=== PATIENT | male | born 1940 | race Caucasian/White ===

== ENCOUNTER 2017-07-17 06:45 | Day surgery (SDC) | payer MEDICARE ==
[~2017-07-17] VITALS: Ht 175.3 cm; Wt 96.6 kg
[~2017-07-17 06:45] MED LIST: APIX5TAB PO; DESL5TAB38 PO; FISH1CAP50 PO; LOSA25TA21 PO; MONT10TA24 PO; MULT-950 PO; OMEG1CAP6 PO; RABE20TA27 PO; RANO500T3 PO; SODIUM CHLORIDE 0.9% 1000ML 1,000 ML IV ONE; SOTA80TA PO
[2017-07-17 07:12] VITALS: BP 113/60
[2017-07-17] MEDS ORDERED: PROPOFOL 10 MG/ML 20ML VIAL IV ONE ×3 (08:46→09:10)
== END 2017-07-17 09:50 | disposition home or self-care (01) ==
LOC: ENDO 06:45 → DAH 06:45 → ENDO 09:50
PROVIDERS: ATTEND Internal Medicine Gastroenterology
DX: D12.4 Benign neoplasm of descending colon (principal); K57.30 Diverticulosis of large intestine without perforation or abscess without bleeding; K22.2 Esophageal obstruction; K21.9 Gastro-esophageal reflux disease without esophagitis; I10 Essential (primary) hypertension; I48.0 Paroxysmal atrial fibrillation; Z79.01 Long term (current) use of anticoagulants; Z96.693 Finger-joint replacement, bilateral; Z82.49 Family history of ischemic heart disease and other diseases of the circulatory system; Z88.8 Allergy status to other drugs, medicaments and biological substances
CPT/HCPCS: 43239; 43249; 45380; 93005; A4606; C1726; J2704 ×3; J7030

== ENCOUNTER → 2023-08-08 | Outpatient (CLI) | payer MEDICARE ==
[~2023-08-08] MED LIST changes: -APIX5TAB PO; +IOHEXOL-350 75 ML VIAL IV ONE; -LOSA25TA21 PO; +LOSA25TA41 PO; +MONT-39 PO; -MONT10TA24 PO; -RABE20TA27 PO; +RABE20TA30 PO; -SODIUM CHLORIDE 0.9% 1000ML 1,000 ML IV ONE
== END | disposition home or self-care (01) ==
LOC: RAH 08:03
PROVIDERS: ATTEND Internal Medicine Cardiovascular Disease
DX: I70.213 Atherosclerosis of native arteries of extremities with intermittent claudication, bilateral legs (principal); M47.815 Spondylosis without myelopathy or radiculopathy, thoracolumbar region; I25.10 Atherosclerotic heart disease of native coronary artery without angina pectoris; R16.0 Hepatomegaly, not elsewhere classified; K44.9 Diaphragmatic hernia without obstruction or gangrene; I70.90 Unspecified atherosclerosis; K40.20 Bilateral inguinal hernia, without obstruction or gangrene, not specified as recurrent; K57.90 Diverticulosis of intestine, part unspecified, without perforation or abscess without bleeding
CPT/HCPCS: 75635; Q9967

== ENCOUNTER → 2024-05-18 | Outpatient (CLI) | payer OTHER ==
[~2024-05-18] MED LIST changes: -IOHEXOL-350 75 ML VIAL IV ONE
--- NOTE | 2024-05-18 12:28 | HMCIMG ---
CT CORONARY CALCIFICATION SCORING: Anatomic images were reviewed. The calcium score is being generated and reported separately. This report is for the visualized anatomy only. Visualized portions of the lungs are clear. Hilar and mediastinal structures appear normal. Osseous structures are unremarkable. Impression: 1. Negative noncardiac anatomic findings. 2. The calcium score is 2958.4 consistent with a large degree of calcified plaque. This is greater than 90th percentile for a patient this age. CT was performed with one or more following dose reduction techniques: automated exposure control, adjustment of the mA and kv according to patient's size, or use of a iterative reconstruction technique.
== END | disposition home or self-care (01) ==
LOC: RAH 09:12
PROVIDERS: ATTEND Internal Medicine Cardiovascular Disease
DX: Z13.6 Encounter for screening for cardiovascular disorders (principal)
CPT/HCPCS: 75571

== ENCOUNTER → 2024-05-27 | Outpatient (CLI) | payer MEDICARE ==
--- NOTE | 2024-05-30 14:38 | HMCSR ---
APPROVED REPORT EXAM: Two-dimensional and M-mode echocardiogram with Doppler and color Doppler. INDICATION ICD: R01.1 Cardiac murmur, unspecified 2D Dimensions RVDd3.9 cmLVEF(%)37.5 (>50%)LVED Vol(simp.)110.0 mL IVSd1.3 (0.7-1.1cm)FS(%)18 %LVES Vol(simp.)67.0 mL LVDd4.4 (3.8-5.6cm)Ao Root(2D)3.8 (2.0-3.7cm)LVEF(%, simp.)39 % PWd1.3 (0.7-1.1cm)LVOT diam2.3 (1.8-2.4cm)LA ESV INDEX (BP)25.49 mL/m2 LVDs3.6 (2.5-4.0cm)IVC diam2.4 cm Aortic Valve AoV Vmax1.4 m/Billy Peak GR7.9 mmHgLVOT Vmax0.8 m/s AoV VTI0.4 mAo Mean GR4.2 mmHgLVOT VTI0.20 m YANELY (VMAX)2.2 cm2AVA (VTI) 2.2 cm2 Mitral Valve MV E Vmax97.2 cm/sDECEL Lygr107 ms MV A Vmax98.5 cm/sP 1/2 T65 ms E/A ratio1.0MVA (PHT)3.4 cm2 MR Max PG35 mmHg TDI E/E' Srjija02.9E/E' Ayeznvu47.5 Pulmonary Valve PV Vmax0.7 m/sPV VTI0.16 m Tricuspid Valve TR Vmax2.9 m/sRAP (EST) 8 kkKsRYAA21.9 mmHg TR Peak GR32.9 mmHg Left Ventricle Left ventricular cavity size is normal. There is mild concentric left ventricular hypertrophy. LVEF i s 40%. No left ventricle thrombus noted on this study. Grade 2 diastolic dysfunction. Right Ventricle The right ventricle is normal size. The right ventricular systolic function is normal. Atria The left atrium size is normal. The right atrium is mildly dilated. Aortic Valve Aortic valve is trileaflet. Aortic valve is mildly calcified. Trace aortic regurgitation. There is no aortic valvular stenosis. Mitral Valve Mitral valve leaflets are mildly sclerotic but open well. Mitral annular calcification is mild. Pamela l regurgitation is trace. There is no mitral valve stenosis. Tricuspid Valve The tricuspid valve leaflets appear normal. There is mild to moderate tricuspid regurgitation. Right ventricular systolic pressure is estimated at 40-50 mmHg. Pulmonic Valve Pulmonic valve is not well visualized. There is trace pulmonic valvular regurgitation. Great Vessels Aortic root is mildly dilated. IVC is dilated and collapses >50% with inspiration. Pericardium No pericardial effusion. Conclusion Left ventricular cavity size is normal. There is mild concentric left ventricular hypertrophy. LVEF is 40%. Grade 2 diastolic dysfunction. The right ventricle is normal size. The left atrium size is normal. Aortic valve is trileaflet. Aortic valve is mildly calcified. Trace aortic regurgitation. Mitral valve leaflets are mildly sclerotic but open well. Mitral annular calcification is mild. Mitral regurgitation is trace. There is mild to moderate tricuspid regurgitation. Right ventricular systolic pressure is estimated at 40-50 mmHg. There is trace pulmonic valvular regurgitation. Aortic root is mildly dilated. IVC is dilated and collapses >50% with inspiration. No pericardial effusion.
== END | disposition home or self-care (01) ==
LOC: SHCH 11:12
PROVIDERS: ATTEND Internal Medicine Cardiovascular Disease
DX: I08.3 Combined rheumatic disorders of mitral, aortic and tricuspid valves (principal); R01.1 Cardiac murmur, unspecified
CPT/HCPCS: 93306

== ENCOUNTER → 2024-06-29 | Outpatient (CLI) | payer MEDICARE ==
--- NOTE | 2024-06-29 17:14 | HMCSR ---
APPROVED REPORT Laterality: Bilateral Indications r09.89 Doppler Spectral Velocity Analysis PSV / EDVPSV / EDV ECA (R) 114 / cm/sECA (L) 106 / cm/s dICA (R) 77 / 28 cm/sdICA (L) 92 / 23 cm/s Suma (R) 96 / 25 cm/smICA (L) 61 / 25 cm/s pICA (R) 138 / 17 cm/spICA (L) 92 / 25 cm/s dCCA (R) 74 / 15 cm/sdCCA (L) 94 / 14 cm/s mCCA (R) 94 / 22 cm/smCCA (L) 110 / 22 cm/s pCCA (R) 88 / 17 cm/spCCA (L) 94 / 9 cm/s Vert (R) 47 / cm/sVert (L) 35 / cm/s Subl. (R) 142 / cm/sSubl. (L) 223 / cm/s ICA/CCA 1.47ICA/CCA 0.84 Technologist Impression Mild heterogenous plaque noted in the bilateral carotids, without hemodynamic significance. Bilateral vertebral arteries appear antegrade. Conclusion Mild heterogenous plaque noted in the bilateral carotids, without hemodynamic significance. Bilateral vertebral arteries appear antegrade. Conclusion Mild heterogenous plaque noted in the bilateral carotids, without hemodynamic significance. Bilateral vertebral arteries appear antegrade.
== END | disposition home or self-care (01) ==
LOC: SHCH 11:08
PROVIDERS: ATTEND Internal Medicine Cardiovascular Disease
DX: I65.23 Occlusion and stenosis of bilateral carotid arteries (principal); R09.89 Other specified symptoms and signs involving the circulatory and respiratory systems
CPT/HCPCS: 93880

== ENCOUNTER → 2024-07-12 | Outpatient (CLI) | payer MEDICARE ==
[2024-07-12] MEDS: REGADENOSON 0.4 MG/5 ML PF SYG IVP ONE (14:17)
--- NOTE | 2024-07-14 08:13 | HMCSR ---
APPROVED REPORT Height: 5 ft 10in Weight: 220 lbs TEST INDICATIONS Dyspnea The imaging protocol used to acquire images was Rest Tc-99m/stress Tc-99m 1 day Consent: The procedure was explained and understood by the patient. Informerd consent was witnessed Chasidy Wilkins RN First, low dose rest was performed then high dose stress. RESTING DATA: The resting ekg shows: NSR Rest SPECT myocardial perfusion imaging was performed in supine position minutes following the intra venous injection of 9 mCi of Tc-99 Sestamibi. Time of rest injection: Date: 07/12/2024 Time of rest imaging: Date: 07/12/2024 PHARMACOLOGIC STRESS: Pharmacologic stress test was performed by injecting regadenoson 0.4 mg IV push followed by the intra venous injection of 22 mCi of Tc-99 Sestamibi. Time of stress injection: Date: 07/12/2024 Time of stress imaging: Date: 07/12/2024 Heart Rate at time of stress injection: 65 bpm. The images were gated to evaluate regional wall motion and calculate left ventricular ejection fracti on. STRESS DETAILS Reason for Termination: Infusion complete Stress Symptoms: No chest pain or symptoms Max HR Achieved: 73 bpm % of APMHR Achieved: 62 Max Blood Pressure: 123/71 mmHg Stress ECG: NSR LEFT VENTRICLE Size: The left ventricular size is normal. Systolic Function:The left ventricular systolic function is normal. Wall Motion: No regional wall motion abnormalities noted. The left ventricular ejection fraction was calculated to be 77%.TID = . LV PERFUSION Patchy isotope uptake with early washout, a finding of questionable cignificance. No reversible defects noted. Conclusion The left ventricular size is normal. The left ventricular systolic function is normal. No regional wall motion abnormalities noted. Patchy isotope uptake with early washout, a finding of questionable cignificance. No reversible defects noted. The left ventricular ejection fraction was calculated to be 77%.
== END | disposition home or self-care (01) ==
LOC: SHCH 07-12 10:58
PROVIDERS: ATTEND Internal Medicine Cardiovascular Disease
DX: R06.09 Other forms of dyspnea (principal)
CPT/HCPCS: 78452; 93017; J2785; A9500 ×2

== ENCOUNTER → 2024-08-03 | Outpatient (CLI) | payer MEDICARE ==
[2024-08-03 16:28] LABS: CREATININE 1.3 mg/dL (0.5-1.3); POTASSIUM 4.3 mmol/L (3.5-5.1)
== END | disposition home or self-care (01) ==
LOC: LAB 11:39
PROVIDERS: ATTEND Nurse Practitioner Acute Care
DX: R06.02 Shortness of breath (principal)
CPT/HCPCS: 36415; 80048

== ENCOUNTER → 2024-08-05 | Outpatient (CLI) | payer MEDICARE ==
[~2024-08-05] MED LIST changes: +IOHEXOL 350 MG/ML 100ML INFUS..BTL IV ONE; +metoPROLOL tartRATE 1 MG/ML 5ML VIAL IV ONE
--- NOTE | 2024-08-05 13:58 | HMCIMG ---
CT CARDIAC ANGIO W/CONT. CCTA REASON: SOB COMPARISON: None TECHNIQUE: Images are obtained through the heart in the axial plane before and during bolus IV contrast infusion, 100 cc Omnipaque 350. 2-D and 3-D multiplanar reconstruction images were then performed. The injection had to be repeated once due to motion artifact on the first sequence, total contrast volume was 200 cc. FINDINGS: This dictation is for the noncardiac findings only. Cardiac and coronary artery findings are reported separately. Visualized portions of the lungs are clear. There is normal-appearing pulmonary interstitium. There is no hilar or mediastinal lymphadenopathy. Chest wall structures appear unremarkable. IMPRESSION: 1. Unremarkable noncardiac portions of CT cardiac angiography.
--- NOTE | 2024-08-08 14:39 | CARDIOLOGY ---
RAD REPORT: [facility] CT ANGIO RADIOLOGY REPORT: CORONARY CT ANGIOGRAPHY DATE: Aug 08, 2024 QUALITY: Excellent CLINICAL HISTORY AND INDICATION: [ HFrEF, ESPINO ] TECHNIQUE: After obtaining a preliminary scout leaser image, contrast imaging performed on an [employer] [id number] scanner. A dedicated, limited window, coronary imaging protocol was used, with single breath-hold, retrospective ECG gating, and automated arrhythmia rejection. 100 cc of low osmolar contrast agent: Omnipaque 350 was delivered via a 18-gauge IV catheter in the right antecubital fossa, using a power injector and followed by 60 cc of normal saline bolus as a chaser. Collimated images were reformatted at 0.5 mm intervals, and sent to an offline independent workstation for interpretation, using 3D anatomic reconstructions: Curved multiplanar reconstructions, maximum intensity projections, and multiplanar imaging. No metoprolol was administered prior to scanning due to low baseline heart rate. 0.4 mg SL nitroglycerin was given. CORONARY ARTERY DESCRIPTIONS: The coronary arteries arise in normal position. Left main coronary artery: Normal caliber vessel that bifurcates into the LAD and LCx. There is mixed calcified and noncalcified plaque in the ostial left main with 30-40% stenosis. Left anterior descending coronary artery: Normal caliber vessel and gives rise to diagonal and septal branches. There is non-calcified plaque in the ostial/proximal LAD with 20-30% stenosis. Left circumflex coronary artery: Normal caliber, nondominant and gives rise to two large OM branches. The OM2 has a proximal and inferior branch. There is mixed calcified and noncalcified plaque in the proximal LCx with 20-30% stenosis. There is mixed calcified and noncalcified plaque in the ostial OM 1 with 20-30% stenosis. Right coronary artery: Large, dominant vessel giving rise to the PL and PDA branches. There is mixed calcified and noncalcified plaque in the ostial RCA with 70% stenosis vs calcium blooming artifact. There is mixed calcified and noncalcified plaque in the mid RCA with 80% stenosis vs motion artifact. CAD-RADs: 4A, severe stenosis, recommend left heart catheterization. Thoracic Aorta: Normal diameter. Marci Lee MD Cardiovascular Disease [facility] MARCI LEE MD Aug 08, 2024 14:39
== END | disposition home or self-care (01) ==
LOC: RAH 07:28
PROVIDERS: ATTEND Internal Medicine Cardiovascular Disease
DX: R06.02 Shortness of breath (principal)
CPT/HCPCS: 75574; J3490; Q9967

== ENCOUNTER 2024-09-01 10:13 | Emergency (ER) | payer MEDICARE ==
[~2024-09-01] VITALS: Ht 177.8 cm; Wt 102.1 kg
[~2024-09-01 10:13] MED LIST changes: -IOHEXOL 350 MG/ML 100ML INFUS..BTL IV ONE; -metoPROLOL tartRATE 1 MG/ML 5ML VIAL IV ONE
--- NOTE | 2024-09-01 11:32 | ERN ---
ED Note History of Present Illness Stated Complaint: OTHER PROBLEMS Chief Complaint: Skin Rash/Abscess Time Seen by MD: 10:33 Time Seen by Midlevel: 10:33 Dictation: 84-year-old male presents to the ED for evaluation of right axillary lump noticed this morning. Patient reports he noticed a bulge to his right underarm, but denies any pain, discharge or any other associated symptoms at this time. PMHx AFib, HTN, pacemaker Allergies: Coded Allergies: hydrocodone (Unverified Allergy, Intermediate, RASH, 06/27/15) Home Meds Active Scripts Amoxicillin/Potassium Clav (Amox Tr-K Clv 875-125 mg Tab) 875 Mg-125 Mg Tablet, 1 TAB PO BID for 7 Days, #14 TAB 0 Refills Prov:ANGEL HARRIS 09/01/24 Reported Medications Desloratadine (Desloratadine) 5 Mg Tab.rapdis, 5 MG PO DAILY, TAB 07/16/17 Sotalol HCl (Sotalol) 80 Mg Tablet, 80 MG PO BID, TAB 07/16/17 Losartan Potassium (Losartan Potassium) 25 Mg Tablet, 25 MG PO DAILY, TAB 07/16/17 Ranolazine (Ranexa) 500 Mg Tab.er.12h, 500 MG PO BID, TAB 07/16/17 Davenport-3 Fatty Acids/Fish Oil ([place]avenport 3 Fish Oil Softgel) 1 Each Capsule.dr, 1 EACH PO AM, CAP 06/19/15 Davenport-3 Fatty Acids (Fish Oil) 500 Mg Capsule.dr, 1 GM PO AM, CAP 06/19/15 Multivitamin (Multi-Day Vitamins) 1 Each Tablet, 1 EACH PO AM, TAB 06/19/15 Montelukast Sodium (Montelukast Sodium) 10 Mg Tablet, 10 MG PO AM, TAB 06/19/15 Rabeprazole Sodium (Rabeprazole Sodium) 20 Mg Tablet.dr, 20 MG PO AM, TAB 06/19/15 Past Medical History Past Medical History: A-Fib, Hypertension Surgical History: Pacer/AICD Review of System Dictation Constitutional: Negative for fever,chills, and weight loss Eyes: Negative for injury, pain,redness, and discharge ENT: Negative for injury,pain or swelling Cardiovascular: Negative for chest pain, palpitations, and edema Respiratory: Negative for shortness of breath, cough, and wheezing, Abdomen/GI: Negative for abdominal pain, nausea, vomiting, diarrhea, and constipation Back: Negative for injury and pain : Negative for injury, bleeding and discharge MS/Extremity: Negative for injury and deformity Skin: Positive for right axillary lump Negative for rash, and discoloration Neuro: Negative for headache, weakness, numbness, tingling, and seizure Psych: Negative for suicide ideation, homicidal ideation, and hallucinations Initial Vital Sign VS Vital Signs Date Time Temp Pulse Resp B/P (MAP) Pulse Ox O2 Delivery O2 Flow Rate FiO2 09/01/24 10:17 98.2 97 16 151/94 98 Room Air 0 09/01/24 13:05 21 Physical Exam Dictation General: awake, alert, NAD Head/Face: Normocephalic, atraumatic Eyes: Normal conjunctiva Neck: Normal range of motion, supple Cardiovascular: RRR, normal S1/S2 Respiratory: no respiratory distress Skin: Warm, dry, normal turgor, no rash, right axillary nodule with mild erythematous nontender MS/Extremity: Pulses equal, no cyanosis, neurovascular intact, FROM Neuro: COAx4, GCS 15, no neurological deficits, normal gait Psych: Normal behavior, mood, and affect normal Results (Laboratory/Radiology) Ultrasound Comment: REASON: Right lump ORDERING PHYSICIAN: ANGEL HARRIS PROCEDURE: SOFT AXILL - US SOFT TISSUE AXILLA US SOFT TISSUE AXILLA REASON: Right lump. COMPARISON: None TECHNIQUE: Right axillary ultrasound study was performed. FINDINGS: Right axillary lymph nodes are seen measuring 8 mm and 9 mm each. IMPRESSION: Right axillary lymph nodes. DICTATED BY: ANEESH CHANEL MD DATE: 09/01/24 1234 ED Course ED Course Orders Procedure Category Date Status Time Us Soft Tissue Axilla US 09/01/24 Resulted 11:50 Vital Signs Date Time Temp Pulse Resp B/P (MAP) Pulse Ox O2 Delivery O2 Flow Rate FiO2 09/01/24 13:05 98.2 92 16 148/90 98 Room Air* 0 21 09/01/24 10:17 98.2 97 16 151/94 98 Room Air 0 Medical Decision Making MDM MDM: Differential diagnosis: Cellulitis, abscess, lymph node swelling Rationale: 84-year-old male presents to the ED for evaluation of right axillary lump noticed this morning. Patient reports he noticed a bulge to his right underarm, but denies any pain, discharge or any other associated symptoms at this time. PMHx AFib, HTN, pacemaker Right axillary soft tissue ultrasound obtained indicating lymph nodes. Per patient's physical examination of a right axillary nodule with mild erythematous antibiotics were prescribed for outpatient treatment. Patient and were educated on findings and diagnosis. Advised to follow up with PCP. Return to the emergency department if any worsening symptoms. Patient verbalized understanding. Patient stable for discharge. Previous outside records reviewed: Old ER visits. Risk of complication and/or morbidity or mortality of patient management: None Medications-Per medication reconciliation Need for hospitalization: Patient does not meet criteria for hospitalization. Need for emergency major/minor surgery: No There are no social concerns with this patient. Prescription drug management Prescriptions will include symptomatic care Patient's prior external medical records from other ER visits were reviewed by me as indicated. Prior testing and results from previous visits were reviewed. Prior tests were taken into account with medical decision making and resource utilization, independent historian/historians were used to obtain complete medical history. I independently interpreted the test that were performed, results were reviewed by me and considered findings on radiology if ordered. Medical management and examination interpretation discussions were had by me with other qualified healthcare professionals as indicated for the patient's care. DX & DISP Disposition: Discharge Departure Impression: Primary Impression: Axillary lymphadenopathy Condition: Stable Scripts Amoxicillin/Potassium Clav (Amox Tr-K Clv 875-125 mg Tab) 875 Mg-125 Mg Tablet 1 TAB PO BID for 7 Days, #14 TAB 0 Refills Prov: ANGEL HARRIS 09/01/24 Additional Instructions: Discharge home. Rest. Follow up with primary care in 24 hours. Return to the ER for any acute changes or worsening symptoms. If any medications were prescribed take as directed. Okay to continue home medications unless otherwise discussed during your visit in the emergency room today. Patient was also advised to follow-up with primary care physician in 1 to 2 days for continued monitoring. Referrals: MARGOTH NOLAND MD (PCP) I performed the substantive portion of the visit. I have reviewed and personally made and approve the management plan that is documented in the notes by myself or the JIM. I acknowledge full responsibility for the patient's management plan. I personally scribed for ANGEL HARRIS ([email or web address]) on 09/01/24 at 11:32. Electronically submitted by Meche Ojeda ([email or web address]). ANGEL HARRIS Sep 01, 2024 11:32 TRISTAN JEFFERSON MD Sep 01, 2024 18:37
--- NOTE | 2024-09-01 12:36 | HMCIMG ---
US SOFT TISSUE AXILLA REASON: Right lump. COMPARISON: None TECHNIQUE: Right axillary ultrasound study was performed. FINDINGS: Right axillary lymph nodes are seen measuring 8 mm and 9 mm each. IMPRESSION: Right axillary lymph nodes.
[2024-09-01] MEDS ORDERED: AMOX1TAB16 PO (13:01)
[2024-09-01 13:05] VITALS: BP 148/90; PULSE 92; RESP 16; TEMP 98.3; O2SAT 98
== END 2024-09-01 13:11 | disposition home or self-care (01) ==
LOC: EDH 10:13
DX: R59.0 Localized enlarged lymph nodes (principal); I48.91 Unspecified atrial fibrillation; I10 Essential (primary) hypertension; Z79.899 Other long term (current) drug therapy; Z88.5 Allergy status to narcotic agent; Z95.810 Presence of automatic (implantable) cardiac defibrillator
CPT/HCPCS: 76882; 99284

== ENCOUNTER 2024-09-13 05:47 | Day surgery (SDC) | payer MEDICARE ==
[2024-09-09 09:12] LABS: BASOPHILS # (AUTO) 0.02 K/uL (0.00-0.20); BASOPHILS % (AUTO) 0.3 % (0.0-5.0); EOSINOPHILS # (AUTO) 0.12 K/uL (0.00-0.70); EOSINOPHILS % (AUTO) 1.8 % (0.0-8.0); HEMATOCRIT 43.3 % (42-54); IMMATURE GRANULOCYTE ABSOLUTE 0.03 K/uL (0-1); MEAN CORPUSCULAR HEMOGLOBIN 30.6 pg (27.0-33.0); MEAN CORPUSCULAR HGB CONC 32.3 g/dL (32.0-36.0); MEAN CORPUSCULAR VOLUME 94.7 fL (79-99); MONOCYTES # (AUTO) 0.6 K/uL (0.1-1.0); NEUTROPHILS # (AUTO) 4.1 K/uL (1.8-7.7); NEUTROPHILS % (AUTO) 59.5 % (40.0-77.0); PLATELET COUNT (AUTO) 192 K/uL (130-400); RED BLOOD CELL COUNT(AUTO) 4.57 MIL/uL (4.50-6.20); RED CELL DISTRIBUTION WIDTH 14.5 % (11.0-15.5); WHITE BLOOD COUNT (AUTO) 6.8 K/uL (4.8-10.8)
[2024-09-09 09:15] LABS: ADD UA MICROSCOPIC NO; APPEARANCE,URINE CLEAR (CLEAR); BILIRUBIN,URINE NEGATIVE (NEGATIVE); COLOR,URINE LIGHT-YELLOW (YELLOW); GLUCOSE, URINE (UA) NEGATIVE (NEGATIVE); KETONES,URINE NEGATIVE (NEGATIVE); LEUKOCYTE ESTERASE ,URINE NEGATIVE Leu/uL (NEGATIVE); NITRATE,URINE NEGATIVE (NEGATIVE); OCCULT BLOOD,URINE NEGATIVE (NEGATIVE); PROTEIN,URINE NEGATIVE (NEGATIVE); UROBILINOGEN,URINE 0.2 mg/dL (0.2-1.0)
[2024-09-09 09:25] LABS: CREATININE 1.4 mg/dL (0.5-1.3)
[2024-09-09 09:28] LABS: INR 1.07 (0.85-1.15); PROTHROMBIN TIME 11.3 SEC (9.6-11.6)
[2024-09-09 09:29] LABS: PARTIAL THROMBOPLASTIN TIME 30.5 SEC (26.3-35.5)
[2024-09-09 09:33] LABS: B-TYPE NATRIURETIC PEPTIDE 63 pg/mL (0-100)
[2024-09-09 09:39] VITALS: BP 129/66; PULSE 68; RESP 18; TEMP 98.4
--- NOTE | 2024-09-09 10:02 | EKG ---
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
--- NOTE | 2024-09-09 16:19 | HMCIMG ---
CHEST 1VW HISTORY: Preop COMPARISON: None FINDINGS: A frontal projection of the chest was obtained. No acute pulmonary infiltrates is seen. The heart is borderline enlarged. Lateral shoulder arthroplasty changes are seen. Pacemaker is seen entering from the left. Postop changes are seen of cervical spine. Aortic calcifications are seen. IMPRESSION: 1. No acute pulmonary infiltrate is seen.
--- NOTE | 2024-09-10 09:34 | NUR ---
RE: LABS REPORTED BMP RESULTS TO LUIZ TOMAS NP. RECEIVED ORDERS TO HAVE PATIENT HYDRATE OVER THE WEEKEND. CALLED PATIENT AND INSTRUCTED HIM TO HYDRATE OVER THE WEEKEND, PATIENT VERBALIZED UNDERSTANDING.
[2024-09-13] VITALS (9 sets, daily range): BP systolic 102–172; BP diastolic 57–80; PULSE 59–66; RESP 14–17; TEMP 97.3–97.9
[~2024-09-13] VITALS: Ht 177.8 cm; Wt 125.9 kg
[~2024-09-13 05:47] MED LIST changes: +ALBUTEROL IH; +APIX5TAB PO; +CYCL30DR OP; +FUROSEMIDE PO; -LOSA25TA41 PO; +LOSA50TA64 PO; -MONT-39 PO; -OMEG1CAP6 PO; -RABE20TA30 PO; +ROSU10TA72 PO
[2024-09-13] MEDS ORDERED: IOHEXOL 350 MG/ML 100ML INFUS..BTL IV ONE (07:15)
[2024-09-13] MEDS ORDERED: SODIUM BICARB 50MEQ 50ML VIAL 50 ML ONE (07:15)
[2024-09-13] MEDS ORDERED: HEParin 10,000 UNIT/10ML (1,000 UNIT/ML) VIAL ONE (07:15)
[2024-09-13] MEDS ORDERED: HEParin-NS 1,000 UNIT/500 ML 1,000 ML IV ONE (07:16)
[2024-09-13] MEDS ORDERED: NITROGLYCERIN 50MG VIAL ONE (07:16)
[2024-09-13] MEDS ORDERED: LIDOCAINE HCL 400MG/20ML VIAL ONE (07:16)
[2024-09-13] MEDS ORDERED: FENTanyl CITRate PF 50 MCG/1 ML 2ML VIAL ONE (07:34)
[2024-09-13] MEDS ORDERED: MIDAZOLAM HCL 1 MG/ML 2ML VIAL ONE ×2 (07:35→07:51)
[2024-09-13] MEDS ORDERED: niCARDIpine 25MG INJ IV ONE (07:39)
[2024-09-13] MEDS: 0.9%NACL 1000ML 1,000 ML IV SCH (08:00)
[2024-09-13] MEDS ORDERED: IOHEXOL-350 50ML VIAL IV ONE (08:26)
[2024-09-13] MEDS ORDERED: cloPIDOgrel 300MG TAB ONE (08:35)
[2024-09-13] MEDS ORDERED: ASPIRIN 81 MG EC TAB ONE (08:36)
[2024-09-13] MEDS ORDERED: 0.9%NACL 10ML VIAL IV SCH (09:00)
[2024-09-13] MEDS ORDERED: MAG/ALUM/SIMETH 30 ML UDCUP ONE (09:00)
--- NOTE | 2024-09-13 09:19 | CCATH ---
PROCEDURES: * Left heart catheterization. * Selective right and left coronary arteriogram. * IVUS of the right coronary artery. * Balloon angioplasty and stenting of the ostial RCA. * Conscious sedation for 1 hour. INDICATIONS: * Severe coronary artery disease. * Abnormal coronary CT angiography. * Recurrent angina. * Ischemic cardiomyopathy. COMPLICATIONS: None. TOTAL CONTRAST: Approximately 80 mL. APPROACH: Right radial approach. DESCRIPTION OF PROCEDURE: The patient was taken to the cardiac catheterization lab after appropriate operative consents were signed. He was prepped and draped in the usual fashion. After conscious sedation was administered, the right radial artery region was infiltrated with 2% Xylocaine without epinephrine. A 6-St Helenian radial sheath was advanced in retrograde fashion by the modified Seldinger technique. At this point, a TIG 4 catheter was advanced over an indwelling wire and positioned into the left ventricular cavity. Left ventricular end-diastolic pressure measurement was obtained. Ventriculography was deferred. The patient has LV dysfunction by echocardiography with an EF of 40% and also has chronic kidney disease. Pullback revealed no aortic stenosis. At this point, the catheter was engaged in the left main coronary artery. This was imaged in multiplane. The left main was a moderately sized vessel that was calcified and had an ostial to proximal 40% stenotic lesion. It bifurcated into an LAD, and a circumflex. The LAD was a large vessel that gave rise to several diagonals and septal perforators. The LAD system was free of disease. Circumflex was a moderately sized vessel that gave rise to a large branching obtuse marginal 1 with a 20% lesion in its proximal portion. The ongoing circ was small and free of disease. The catheter was then engaged in the ostium of the right coronary artery. Catheter dampening ensued immediately. The right coronary artery was a large vessel that was ectatic in some segments and tortuous. It had a severe stenotic lesion at its ostium rated at least 80% and was somewhat hazy. The mid RCA had a 30% stenotic lesion. The distal RCA was free of disease and gave rise to a large PDA and a large branching PLVB. The PDA had an ostial 40% lesion and the rest of the vessel was free of disease. At this point, the decision was made to proceed with intervention for the right coronary artery. An FR4 6-St Helenian catheter was advanced and selectively engaged to the ostium of the right coronary artery. A 0.014 wire was advanced after full heparinization and ACT check. At this point, we utilized an IVUS catheter to image the vessel. Multiple views were obtained with IVUS. The patient had a size of approximately 4.5-5 mm vessel. The IVUS cross-sectional area was remarkable for an 80% stenotic lesion. The minimal diameter was 2.4 in the area of stenosis. Given that, the decision was made to proceed with angioplasty and stent placement of the ostial and proximal right coronary artery. We utilized a 4.0 x 18 Sajan Irvine stent, which was positioned appropriately in the ostium with no protrusion. The stent was deployed at 14 atmospheres at 4.4 mm size with good final angiographic results. At this point, the procedure was completed, the patient tolerated it well and left the cardiac catheterization lab in stable condition. The catheter was withdrawn over an indwelling wire and radial band was applied. FINAL IMPRESSION: * Severe coronary artery disease involving the right coronary artery and mild to moderate left main disease. * Ischemic cardiomyopathy with ejection fraction of 40% by noninvasive studies. * No aortic stenosis. * Successful IVUS guided balloon angioplasty and stenting of the ostial and proximal RCA with a 4.0 x 18 Sajan Irvine drug-eluting stent inflated to 14 atmospheres at 4.1 mm size with good final angiographic results. PLAN: Continue medical management. TID: [id number] RECEIPT: [id number]
--- NOTE | 2024-09-13 11:50 | NUR ---
TR BAND REMOVED AT THIS TIME RIGHT RADIAL SITE ASYMPTOMATIC. STERILE 2X2 GAUZE AND TEGADERM APPLIED TO RIGHT RADIAL SITE.
== END 2024-09-13 12:23 | disposition home or self-care (01) ==
LOC: DAH 05:47
PROVIDERS: ATTEND Internal Medicine Cardiovascular Disease
DX: R93.1 Abnormal findings on diagnostic imaging of heart and coronary circulation (principal); I25.118 Atherosclerotic heart disease of native coronary artery with other forms of angina pectoris; I25.5 Ischemic cardiomyopathy; I13.0 Hypertensive heart and chronic kidney disease with heart failure and stage 1 through stage 4 chronic kidney disease, or unspecified chronic kidney disease; N18.30 Chronic kidney disease, stage 3 unspecified; I50.42 Chronic combined systolic (congestive) and diastolic (congestive) heart failure; I25.84 Coronary atherosclerosis due to calcified coronary lesion; E78.5 Hyperlipidemia, unspecified; I48.0 Paroxysmal atrial fibrillation; E66.9 Obesity, unspecified; K21.9 Gastro-esophageal reflux disease without esophagitis; Z86.0100 Personal history of colon polyps, unspecified; Z82.49 Family history of ischemic heart disease and other diseases of the circulatory system; Z96.651 Presence of right artificial knee joint; Z96.612 Presence of left artificial shoulder joint; Z96.611 Presence of right artificial shoulder joint; Z90.89 Acquired absence of other organs; Z98.890 Other specified postprocedural states; Z98.41 Cataract extraction status, right eye; Z98.42 Cataract extraction status, left eye; Z95.0 Presence of cardiac pacemaker; Z68.31 Body mass index [BMI] 31.0-31.9, adult; Z79.899 Other long term (current) drug therapy
CPT/HCPCS: 80048; 83880; 85025; 85610; 85730; 81003; 36415; 71045; 93005; 92978; 93458; C9600; C1769 ×2; C1887; C1874; C1894; C1753; Q9965; J3010; J3490 ×4; J7030; J1644 ×2; J2250 ×2; Q9967; A4215; A4222; A4221; A4663; A4216; A6206; A4606; A4223 ×3; 99156; 99157

== ENCOUNTER 2024-10-15 06:38 | Day surgery (SDC) | payer MEDICARE ==
[2024-10-13 12:55] LABS: BASOPHILS # (AUTO) 0.01 K/uL (0.00-0.20); BASOPHILS % (AUTO) 0.1 % (0.0-5.0); EOSINOPHILS # (AUTO) 0.14 K/uL (0.00-0.70); EOSINOPHILS % (AUTO) 1.8 % (0.0-8.0); HEMATOCRIT 43.1 % (42-54); IMMATURE GRANULOCYTE ABSOLUTE 0.03 K/uL (0-1); LYMPHOCYTES # (AUTO) 2.1 K/uL (1.0-4.8); LYMPHOCYTES % (AUTO) 26.8 % (21.0-51.0); MEAN CORPUSCULAR HEMOGLOBIN 30.4 pg (27.0-33.0); MEAN CORPUSCULAR HGB CONC 32.3 g/dL (32.0-36.0); MEAN CORPUSCULAR VOLUME 94.3 fL (79-99); MONOCYTES # (AUTO) 0.7 K/uL (0.1-1.0); MONOCYTES % (AUTO) 8.4 % (3.0-13.0); NEUTROPHILS % (AUTO) 62.5 % (40.0-77.0); PLATELET COUNT (AUTO) 221 K/uL (130-400); RED BLOOD CELL COUNT(AUTO) 4.57 MIL/uL (4.50-6.20); RED CELL DISTRIBUTION WIDTH 14.7 % (11.0-15.5)
[2024-10-13 13:10] LABS: CREATININE 1.3 mg/dL (0.5-1.3); POTASSIUM 4.9 mmol/L (3.5-5.1)
[2024-10-13 13:22] LABS: INR 1.13 (0.85-1.15); PROTHROMBIN TIME 11.8 SEC (9.6-11.6)
[2024-10-13 13:24] LABS: PARTIAL THROMBOPLASTIN TIME 32.9 SEC (26.3-35.5)
[2024-10-13 13:28] VITALS: BP 141/66; PULSE 59; RESP 18; TEMP 97.9
--- NOTE | 2024-10-13 13:53 | EKG ---
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
[~2024-10-15] VITALS: Ht 180.3 cm; Wt 101.8 kg
[2024-10-15] VITALS (10 sets, daily range): BP systolic 110–145; BP diastolic 54–79; PULSE 60–97; RESP 8–18; TEMP 96.7–98.2
[~2024-10-15 06:38] MED LIST changes: +CLOP75TA32 PO; -CYCL30DR OP; -DESL5TAB38 PO; +FURO20TA4 PO; -FUROSEMIDE PO; -LOSA50TA64 PO; +METO-408 PO
[2024-10-15] MEDS: 0.9%NACL 1000ML 1,000 ML IV SCH (08:11)
[2024-10-15] MEDS ORDERED: ceFAZolin SODIUM 1 GM VIAL ONE (09:15)
[2024-10-15] MEDS ORDERED: LIDOCAINE HCL 1% MDV 50ML VIAL ONE (09:15)
[2024-10-15] MEDS ORDERED: BUPIvacaine/PF 0.25% 30ML VIAL IJ ONE (09:15)
[2024-10-15] MEDS ORDERED: FENTanyl CITRate PF 50 MCG/1 ML 2ML VIAL ONE (09:28)
[2024-10-15] MEDS ORDERED: MIDAZOLAM HCL 1 MG/ML 2ML VIAL ONE ×3 (09:28→10:16)
[2024-10-15] MEDS ORDERED: IOHEXOL-350 50ML VIAL IV ONE (10:11)
--- NOTE | 2024-10-15 12:20 | NUR ---
dressing: pressure dressing to left upper chest dry/intact. ice bag applied to site as per orders. left arm in place to arm sling.
--- NOTE | 2024-10-15 12:35 | NUR ---
dressing: pressure dressing to left upper chest remains dry/intact with ice bag in place. left arm remains in place to arm sling.
--- NOTE | 2024-10-15 12:50 | NUR ---
dressing : pressure dressing to left upper chest remains dry/intact with ice bag in place. left arm in place to arm sling.
--- NOTE | 2024-10-15 13:05 | NUR ---
dressing: pressure dressing remains dry/intact with ice bag in place. left arm remains in place to arm sling.
--- NOTE | 2024-10-15 13:20 | NUR ---
dressing: pressure dressing to left upper chest remains dry/intact with ice bag in place. left arm remains in place to arm sling.
--- NOTE | 2024-10-15 13:50 | NUR ---
dressing: dressing to left upper chest remains dry/intact with ice bag in place. left arm remains in place to arm sling.
--- NOTE | 2024-10-15 13:54 | NUR ---
report: hand-off communication given to viji castillo rn
--- NOTE | 2024-10-15 14:20 | NUR ---
DRESSING PRESSURE DRESSING TO LEFT UPPER CHEST REMAINS CLEAN, DRY, AND INTACT. SURROUNDING AREA SOFT, NON-TENDER. PATIENT DENIES ANY PAIN/DISCOMFORT.
--- NOTE | 2024-10-15 15:20 | NUR ---
DRESSING PRESSURE DRESSING TO LEFT UPPER CHEST REMAINS CLEAN, DRY, AND INTACT. SURROUNDING AREA SOFT, NON-TENDER. PATIENT DENIES ANY PAIN/DISCOMFORT.
[2024-10-15] MEDS: ceFAZolin SODIUM 1 GM VIAL IVPB ONE (16:15)
--- NOTE | 2024-10-15 16:20 | NUR ---
DRESSING PRESSURE DRESSING TO LEFT UPPER CHEST REMAINS CLEAN, DRY, AND INTACT. SURROUNDING AREA SOFT, NON-TENDER. PATIENT DENIES ANY PAIN/DISCOMFORT.
--- NOTE | 2024-10-15 16:54 | HMCIMG ---
CHEST 1VW HISTORY: Postpacemaker placement COMPARISON: 09/09/2024 FINDINGS: A frontal projection of the chest was obtained. Mild bilateral pulmonary infiltrates are seen may be related to mild pulmonary vascular congestion with possible superimposed pneumonitis. The heart is borderline enlarged. Bilateral shoulder prosthesis. Aortic calcifications are seen. Pacemaker is seen entering on the left. No pneumothorax is seen. IMPRESSION: 1. Mild bilateral pulmonary infiltrates are seen may be related to mild pulmonary vascular congestion with possible superimposed pneumonitis.
--- NOTE | 2024-10-15 17:00 | NUR ---
POST PROCEDURE X-RAY REPORTED TO LUIZ FELICIANO NP, STATES PT OK TO BE DISCHARGED. PRESSURE DRESSING TO LEFT UPPER CHEST REMOVED AT THIS TIME. TEGADERM AND NON-ADHERENT DRESSING REMAIN IN PLACE, CLEAN, DRY, AND INTACT. SURROUNDING AREA SOFT, NON-TENDER. NO BLEEDING/HEMATOMA NOTED. PATIENT INSTRUCTED TO LEAVE DRESSING DRY AND INTACT UNTIL OFFICE FOLLOW UP. INSTRUCTED TO ONLY REINFORCE TEGADERM NEEDED. PATIENT VERBALIZED UNDERSTANDING.
--- NOTE | 2024-10-16 11:24 | EKG ---
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
== END 2024-10-15 17:10 | disposition home or self-care (01) ==
LOC: DAH 06:38
PROVIDERS: ATTEND Internal Medicine Cardiovascular Disease
DX: I42.9 Cardiomyopathy, unspecified (principal); I44.7 Left bundle-branch block, unspecified; I13.0 Hypertensive heart and chronic kidney disease with heart failure and stage 1 through stage 4 chronic kidney disease, or unspecified chronic kidney disease; N18.30 Chronic kidney disease, stage 3 unspecified; I50.42 Chronic combined systolic (congestive) and diastolic (congestive) heart failure; I45.9 Conduction disorder, unspecified; I25.10 Atherosclerotic heart disease of native coronary artery without angina pectoris; I48.92 Unspecified atrial flutter; I44.0 Atrioventricular block, first degree; I49.5 Sick sinus syndrome; I48.0 Paroxysmal atrial fibrillation; I10 Essential (primary) hypertension; E78.00 Pure hypercholesterolemia, unspecified; K21.9 Gastro-esophageal reflux disease without esophagitis; E87.5 Hyperkalemia; E66.9 Obesity, unspecified; Z79.01 Long term (current) use of anticoagulants; Z68.32 Body mass index [BMI] 32.0-32.9, adult; Z90.89 Acquired absence of other organs; Z79.899 Other long term (current) drug therapy; Z95.0 Presence of cardiac pacemaker; Z98.890 Other specified postprocedural states; Z96.651 Presence of right artificial knee joint
CPT/HCPCS: 80048; 85025; 85610; 85730; 36415; 93005 ×2; 33228; 33225; 71045; C1769 ×2; C1900; C2621; C1894; J3010; J0690 ×2; J7030; J0665; J2250 ×3; J3490; Q9967; A4215; A4222; A4221; A4663; A4216; A4606; A4223 ×3; 99156; 99157

== ENCOUNTER 2024-11-24 08:48 | Emergency (ER) | payer MEDICARE ==
[~2024-11-24] VITALS: Ht 180.3 cm; Wt 99.8 kg
--- NOTE | 2024-11-24 09:00 | NUR ---
PATIENT STATES THAT HE HAS HAS ON AND OFF HEADACHES X 1 WEEK, AFTER HE HAD A FALL ONE WEEK AGO, HAS A HEALING ABRASIO TO FOREHEAD, AND HEALING BRUISES TO BILATERAL EYE LIDS, DENIES HEADACHE AT THIS TIME, PAITENT HAS HEARING AID TO LEFT EAR IN PLACE
[2024-11-24 09:28] LABS: BASOPHILS # (AUTO) 0.02 K/uL (0.00-0.20); BASOPHILS % (AUTO) 0.2 % (0.0-5.0); EOSINOPHILS # (AUTO) 0.16 K/uL (0.00-0.70); EOSINOPHILS % (AUTO) 1.9 % (0.0-8.0); HEMATOCRIT 45.5 % (42-54); IMMATURE GRANULOCYTE ABSOLUTE 0.02 K/uL (0-1); LYMPHOCYTES # (AUTO) 2.3 K/uL (1.0-4.8); LYMPHOCYTES % (AUTO) 27.4 % (21.0-51.0); MEAN CORPUSCULAR HEMOGLOBIN 31.7 pg (27.0-33.0); MEAN CORPUSCULAR HGB CONC 33.8 g/dL (32.0-36.0); MEAN CORPUSCULAR VOLUME 93.6 fL (79-99); MONOCYTES # (AUTO) 0.8 K/uL (0.1-1.0); MONOCYTES % (AUTO) 9.3 % (3.0-13.0); NEUTROPHILS # (AUTO) 5.1 K/uL (1.8-7.7); PLATELET COUNT (AUTO) 232 K/uL (130-400); RED BLOOD CELL COUNT(AUTO) 4.86 MIL/uL (4.50-6.20); WHITE BLOOD COUNT (AUTO) 8.3 K/uL (4.8-10.8)
[2024-11-24 09:31] LABS: CREATININE 1.2 mg/dL (0.5-1.3); POTASSIUM 4.3 mmol/L (3.5-5.1)
[2024-11-24 09:33] LABS: ADD UA MICROSCOPIC YES; APPEARANCE,URINE CLEAR (CLEAR); BILIRUBIN,URINE NEGATIVE (NEGATIVE); COLOR,URINE LIGHT-YELLOW (YELLOW); GLUCOSE, URINE (UA) NEGATIVE (NEGATIVE); KETONES,URINE NEGATIVE (NEGATIVE); LEUKOCYTE ESTERASE ,URINE 25 Leu/uL (NEGATIVE); NITRATE,URINE NEGATIVE (NEGATIVE); OCCULT BLOOD,URINE NEGATIVE (NEGATIVE); PH,URINE 5.5 (5.0-8.0); PROTEIN,URINE NEGATIVE (NEGATIVE); UROBILINOGEN,URINE 0.2 mg/dL (0.2-1.0)
[2024-11-24 09:36] LABS: MAGNESIUM 2.1 mg/dL (1.80-2.40)
[2024-11-24 09:42] LABS: RBC,URINE 0-1 /HPF (0-1); SQUAMOUS EPITHELIAL CELL,UR RARE /HPF (0-2)
--- NOTE | 2024-11-24 09:45 | HMCIMG ---
CHEST 1VW HISTORY: Chest pain COMPARISON: 10/15/2024 FINDINGS: A frontal projection of the chest was obtained. Prominent interstitial markings are seen. Bilateral humeral prosthesis is seen. Pacemaker is seen entering from the left. The heart is borderline enlarged. The calcifications are seen degenerative changes are seen. IMPRESSION: 1. Prominent interstitial markings are seen with possible superimposed infiltrates.
--- NOTE | 2024-11-24 09:49 | HMCIMG ---
CT HEAD/BRAIN W/O CONTRAST HISTORY: Headaches COMPARISON: None TECHNIQUE: Multiple sequential axial images of the head were obtained from the base of the skull through vertex. Patient was not given contrast through intravenous route. FINDINGS: The ventricles and extraventricular CSF spaces are dilated consistent with cerebral atrophy. Nonspecific white matter changes seen. There is no midline shift, mass effect or herniation. No acute intracranial bleed is seen. Visualized portion of the paranasal sinuses are grossly within normal limits. IMPRESSION: 1. No acute intracranial bleed is seen. 2. Atrophy with white matter changes. CT was performed with one or more following dose reduction techniques: automated exposure control, adjustment of the mA and kv according to patient's size, or use of a iterative reconstruction technique.
[2024-11-24 09:54] LABS: B-TYPE NATRIURETIC PEPTIDE 85 pg/mL (0-100)
[2024-11-24 10:04] LABS: PROTHROMBIN TIME 10.6 SEC (9.6-11.6)
[2024-11-24 10:06] LABS: PARTIAL THROMBOPLASTIN TIME 30.2 SEC (26.3-35.5)
--- NOTE | 2024-11-24 10:07 | ERN ---
General Chief Complaint: Headache Stated Complaint: HEADACHE Time Seen by MD: 08:50 Source: patient History of Present Illness Initial Comments PATIENT IS A 84-YEAR-OLD MALE COMING IN TO BE EVALUATED AFTER HE HAD A FALL EARLIER TODAY. PATIENT STATES HE FELL DOWN HIT HIMSELF IN THE FOREHEAD. STATES THAT HE HAS BEEN HAVING A HEADACHE SINCE THEN. THIS HAPPENED A COUPLE OF DAYS AGO. PREVIOUS THIS PATIENT HAS HAD EPISODES OF FALLING. Allergies: Coded Allergies: hydrocodone (Unverified Allergy, Intermediate, RASH, 06/27/15) Home Meds Reported Medications Furosemide (Furosemide) 20 Mg Tablet, 20 MG PO DAILY PRN for EDEMA, TAB 10/14/24 Metoprolol Succinate (Metoprolol Succinate) 25 Mg Tab.er.24h, 12.5 MG PO HS, TAB 10/13/24 Clopidogrel Bisulfate (Clopidogrel) 75 Mg Tablet, 75 MG PO AM, TAB 10/13/24 [Albuterol] No Conflict Check, 2 PUFF IH AM 09/09/24 Rosuvastatin Calcium (Rosuvastatin Calcium) 10 Mg Tablet, 10 MG PO HS, TAB 09/09/24 Apixaban (Eliquis) 5 Mg Tablet, 5 MG PO BID, TAB 09/09/24 Sotalol HCl (Sotalol) 80 Mg Tablet, 80 MG PO BID, TAB 07/16/17 Ranolazine (Ranexa) 500 Mg Tab.er.12h, 500 MG PO BID, TAB 07/16/17 [place]-3 Fatty Acids/Fish Oil ([place] 3 Fish Oil Softgel) 1 Each Capsule.dr, 1 EACH PO AM, CAP 06/19/15 Multivitamin (Multi-Day Vitamins) 1 Each Tablet, 1 EACH PO AM, TAB 06/19/15 Past Medical History Past Medical History: High Cholesterol, Hypertension Past Surgical History: Pacer/AICD, Other Surgical History Other: MULTIPLE BACK SX, RT KNEE REPLACEMENT, BILAT SHOULDER SX ROS Dictation CONSTITUTIONAL: NO CHILLS, NO FEVER, WEAKNESS, NO DIAPHORESIS, NO MALAISE. HEAD/FACE: NO SIGNS OF TRAUMA. EENT: NO EYE PAIN, NO BLURRED VISION, NO TEARING, NO DOUBLE VISION, NO EAR PAIN, NO EAR DISCHARGE, NO NOSE PAIN, NO NASAL CONGESTION, NO THROAT PAIN, NO THROAT SWELLING, NO MOUTH PAIN. RESPIRATORY: NO COUGH, NO ORTHOPNEA, NO SOB, NO STRIDOR, NO WHEEZING. CARDIOVASCULAR: NO CHEST PAIN, NO EDEMA, NO PALPITATIONS, NO SYNCOPE. GASTROINTESTINAL/ABDOMINAL: NO ABDOMINAL PAIN, NO CONSTIPATION, NO DIARRHEA, NO NAUSEA, NO VOMITING. GENITOURINARY: NO ABNORMAL DISCHARGE, NO DYSURIA, NO FREQUENT URINATION, NO HEMATURIA. NO COMPLAINTS OF PAIN IN THE GENITALS. MUSCULOSKELETAL: NO BACK PAIN, NO GOUT, NO JOINT PAIN, NO JOINT SWELLING, NO MUSCLE PAIN, NO MUSCLE STIFFNESS, NO NECK PAIN. INTEGUMENTARY: NO CHANGE IN COLOR, NO CHANGE IN HAIR/NAILS, NO DRYNESS, NO LESION, NO LUMPS, NO RASH. NEUROLOGICAL/PSYCH: NO ANXIETY, NOT DEPRESSED, NO EMOTIONAL PROBLEM, NO HEADACHE, NO NUMBNESS, NO PRE-EXISTING DEFICIT, NO HISTORY OF SEIZURES, NO TREMORS, NO WEAKNESS. HEMATOLOGIC/LYMPHATIC: NOT ANEMIC, NO HISTORY OF BLOOD CLOTS, NO APPARENT BLEEDING, NO BRUISING, GLANDS NOT SWOLLEN. ALL SYSTEMS NEGATIVE, EXCEPT NOTED. Physical Exam Physical Exam Dictation VITAL SIGNS: REVIEWED. GENERAL APPEARANCE: ALERT, ORIENTED X3, NO ACUTE DISTRESS, OBESE. HEAD AND FACE: FOREHEAD CONTUSION, EYES: PERRL, PINK CONJUNCTIVAS, EYELID NO TRAUMA, ANTERIOR CHAMBER CLEAR. EARS: PINNAS INTACT AND NO SIGNS OF TRAUMA OR ERYTHEMA. EAR CANALS CLEAR AND NO DISCHARGE. TMS NO ERYTHEMA. NOSE: NO DISCHARGE, NO BLEEDING. OROPHARYNX: MOUTH NORMAL, TEETH NO CARIES, TONGUE PINK. PHARYNX CLEAR, NO ERYTHEMA. TONSILS NO EXUDATES, NO ABSCESSES NOTED. MUCOUS MEMBRANE MOIST. NECK: SUPPLE, NON-TENDER, NO THYROMEGALY, NO MASSES, NO JVD, NO BRUITS. BREAST: DEFERRED. CHEST: NO TENDERNESS, NO CREPITUS, NO PARADOXICAL MOVEMENT, NO RETRACTIONS. LUNGS: CLEAR, WELL-VENTILATED, SYMMETRIC, NO RALES, NO WHEEZING, NO RHONCHI, NO STRIDOR, GOOD BREATH SOUNDS BILATERALLY. HEART: REGULAR RATE, REGULAR RHYTHM, NO MURMUR, NO GALLOPS. VASCULAR: NO PERIPHERAL EDEMA. ABDOMEN: SOFT, POSITIVE BOWEL SOUNDS, NONDISTENDED, NO GUARDING, NONTENDER, NO REBOUND, NO MASSES NO HEPATOMEGALY, NO SPLENOMEGALY, NO BERNSTEIN'S SIGN, NO ANJELICA IAS. RECTAL: DEFERRED. GENITAL: DEFERRED. NEUROLOGICAL: NORMAL SPEECH, GROSS MOTOR FUNCTION INTACT, GROSS SENSORY FUNCTION INTACT. MUSCULOSKELETAL: NECK NONTENDER, FULL RANGE OF MOTION, BACK NONTENDER, FULL RANGE OF MOTION. EXTREMITIES: NONTENDER, FULL RANGE OF MOTION. SKIN: COLOR PINK, DRY, NO TURGOR, NO RASH, NO LACERATIONS, NO ABRASIONS, NO CONTUSIONS. LYMPHATICS: DEFERRED. Results Laboratory and Microbiology Lab and Micro Result Laboratory Tests Test 11/24/24 09:10 White Blood Count 8.3 K/uL (4.8-10.8) Red Blood Count 4.86 MIL/uL (4.50-6.20) Hemoglobin 15.4 g/dL (14.0-18.0) Hematocrit 45.5 % (42-54) Mean Corpuscular Volume 93.6 fL (79-99) Mean Corpuscular Hemoglobin 31.7 pg (27.0-33.0) Mean Corpuscular Hemoglobin Concent 33.8 g/dL (32.0-36.0) Red Cell Distribution Width 14.0 % (11.0-15.5) Platelet Count 232 K/uL (130-400) Mean Platelet Volume 10.0 fL (7.5-10.5) Immature Granulocyte % (Auto) 0.2 % (0-1) Neutrophils (%) (Auto) 61.0 % (40.0-77.0) Lymphocytes (%) (Auto) 27.4 % (21.0-51.0) Monocytes (%) (Auto) 9.3 % (3.0-13.0) Eosinophils (%) (Auto) 1.9 % (0.0-8.0) Basophils (%) (Auto) 0.2 % (0.0-5.0) Neutrophils # (Auto) 5.1 K/uL (1.8-7.7) Lymphocytes # (Auto) 2.3 K/uL (1.0-4.8) Monocytes # (Auto) 0.8 K/uL (0.1-1.0) Eosinophils # (Auto) 0.16 K/uL (0.00-0.70) Basophils # (Auto) 0.02 K/uL (0.00-0.20) Absolute Immature Granulocyte (auto 0.02 K/uL (0-1) Nucleated Red Blood Cells 0.0 % (0.0-0.19) Prothrombin Time 10.6 SEC (9.6-11.6) Prothromb Time International Ratio 1.00 (0.85-1.15) Activated Partial Thromboplast Time 30.2 SEC (26.3-35.5) Urine Color LIGHT-YELLOW (YELLOW) Urine Appearance CLEAR (CLEAR) Urine pH 5.5 (5.0-8.0) Urine Specific [place] 1.008 (1.001-1.031) Urine Protein NEGATIVE mg/dL (NEGATIVE) Urine Glucose (UA) NEGATIVE mg/dL (NEGATIVE) Urine Ketones NEGATIVE mg/dL (NEGATIVE) Urine Occult Blood NEGATIVE (NEGATIVE) Urine Nitrate NEGATIVE (NEGATIVE) Urine Bilirubin NEGATIVE mg/dL (NEGATIVE) Urine Urobilinogen 0.2 mg/dL (0.2-1.0) Urine Leukocyte Esterase 25 Sung/uL (NEGATIVE) H Urine RBC 0-1 /HPF (0-1) Urine WBC 2-5 /HPF (0-1) H Urine Squamous Epithelial Cells RARE /HPF (0-2) Urine Bacteria None /HPF (None Seen) Sodium Level 142 mmol/L (136-145) Potassium Level 4.3 mmol/L (3.5-5.1) Chloride Level 105 mmol/L (101-111) Carbon Dioxide Level 28 mmol/L (21-32) Blood Urea Nitrogen 17 mg/dL (7-18) Creatinine 1.2 mg/dL (0.5-1.3) Glomerular Filtration Rate Calc 60 mL/min (>90) Random Glucose 95 mg/dL (70-105) Total Calcium 9.1 mg/dL (8.5-10.1) Magnesium Level 2.10 mg/dL (1.80-2.40) Total Creatine Kinase 95 U/L (21-232) # Troponin I High Sensitivity 12 ng/L (4-75) B-Type Natriuretic Peptide 85 pg/mL (0-100) Labs Reviewed?: Yes EKG/XRAY/US/CT/MRI EKG Comment 11/24/2024 TIME 9:15 A.M. VENTRICULAR RATE [address] WAVE ELEVATION OR DEPRESSION MDM MDM: DIFFERENTIAL DIAGNOSIS: FALL, GENERALIZED BODY WEAKNESS, RATIONALE: TESTS CONSIDERED AND ORDERED SECONDARY TO SHARED DECISION MAKING INCLUDE: LABS, ECG AND RADIOLOGY PREVIOUS OUTSIDE RECORDS REVIEWED: OLD ER VISITS. RISK OF COMPLICATION AND/OR MORBIDITY OR MORTALITY OF PATIENT MANAGEMENT: NONE MEDICATIONS-PER MEDICATION RECONCILIATION Patient is a an 84-year-old gentleman coming in after he had a fall. He states he had a mechanical fall earlier this week in his here for further evaluation due to neighbor's recommendation. Laboratory workup CT did not disclose acute findings. I did advise him that we would have to admit him due to frequent falls he refused admission states he feels better and wishes to go home. I explained that was part of my medical recommendation and he still refused I did advise him if he changes his mind he could always seek immediate help with the nearest ER or with PCP. At the moment of discharge patient is baseline states he feels better with the IV hydration we will be discharged in stable condition. ED Course Orders Procedure Category Date Status Time Cbc With Differential LAB 11/24/24 Complete 08:59 Prothrombin Time With LAB 11/24/24 Complete INR 08:59 B-Type Natriuretic LAB 11/24/24 Complete Peptide 08:59 Chest 1vw RAD 11/24/24 Resulted 08:59 12 Lead Ekg Tracing- EKG 11/24/24 Logged Technical 08:59 Magnesium LAB 11/24/24 Complete 08:59 Creatine Kinase, Total LAB 11/24/24 Complete 08:59 Troponin I High LAB 11/24/24 Complete Sensitivity 08:59 Urinalysis Profile LAB 11/24/24 Complete 08:59 Partial LAB 11/24/24 Complete Thromboplastin Time 08:59 Basic Metabolic Panel LAB 11/24/24 Complete 08:59 Ct Head/Brain W/O CT 11/24/24 Resulted Contrast 08:59 Ceftriaxone 1g Vial PHA 11/24/24 Complete (Rocephine 1g Inj) 10:30 0.9%Nacl 1000ml (Ns PHA 11/24/24 Complete 1000ml) 10:30 Current Medications Medications (Trade) Dose Ordered Sig/Marc Route PRN Reason Start Time Stop Time Status Last Admin Dose Admin Ceftriaxone Sodium (ROCEphine 1G INJ) 1 gm ONCE ONCE IVPB 11/24/24 10:30 11/24/24 10:31 DC 11/24/24 10:23 Sodium Chloride 1,000 ml @ 0 mls/hr ONCE ONCE IV 11/24/24 10:30 11/24/24 10:31 DC 11/24/24 10:23 Vital Signs Date Time Temp Pulse Resp B/P (MAP) Pulse Ox O2 Delivery O2 Flow Rate FiO2 11/24/24 08:50 98.2 64 18 156/76 98 Room Air 0 DX & DISP Disposition: Discharge Departure Impression: Primary Impression: Accident due to mechanical fall without injury Additional Impressions: Head injury, Dehydration Condition: Stable Additional Instructions: FOLLOW-UP WITH PRIMARY CARE PROVIDER IN 1 TO 2 DAYS. TAKE MEDICATIONS DIRECTED HERE IN THE EMERGENCY ROOM. OKAY TO CONTINUE HOME MEDICATIONS UNLESS OTHERWISE DISCUSSED DURING YOUR VISIT IN THE EMERGENCY ROOM TODAY. RETURN TO YOUR NEAREST EMERGENCY ROOM IF SYMPTOMS WORSEN OR IF THERE IS NO IMPROVEMENT. CALL 911 IF YOU NEED IMMEDIATE ASSISTANCE. TAKE TYLENOL [id number] NEEDED AND IF NO CONTRAINDICATIONS ARE PRESENT. INCREASE ORAL HYDRATION. A WOUND CULTURE OR URINE CULTURE WAS ORDERED HERE IN THE EMERGENCY ROOM DEPARTMENT PLEASE FOLLOW-UP WITH PRIMARY CARE PROVIDER AND ADVISE THEM TO GET REPEAT PORTS FROM OUR FACILITY. IF YOU HAD ANY CARLA WRAP/SPLINTS THAT WERE APPLIED HERE, PLEASE DO NOT REMOVE THEM UNTIL YOU SEE YOUR PRIMARY CARE OR SPECIALTY. Referrals: Referrals: MARGOTH NOLAND MD (PCP) Time of Disposition: 10:54 KRISTEN MOTA MD November 24, 2024 10:07
[2024-11-24] MEDS: cefTRIAXone 1G VIAL IVPB ONE (10:23)
[2024-11-24] MEDS: 0.9%NACL 1000ML 1,000 ML IV ONE (10:23)
[2024-11-24 10:57] VITALS: BP 126/64; PULSE 64; RESP 18; TEMP 97.9; O2SAT 99
--- NOTE | 2024-11-24 13:24 | EKG ---
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
== END 2024-11-24 11:17 | disposition home or self-care (01) ==
LOC: EDH 08:48
DX: S09.90XA Unspecified injury of head, initial encounter (principal); E86.0 Dehydration; I10 Essential (primary) hypertension; E78.00 Pure hypercholesterolemia, unspecified; Z79.899 Other long term (current) drug therapy; W18.39XA Other fall on same level, initial encounter; Y93.89 Activity, other specified; Y92.89 Other specified places as the place of occurrence of the external cause; Y99.8 Other external cause status
CPT/HCPCS: 99285; 96374; 70450; 71045; 96361; 82550; 83735; 84484; 80048; 83880; 85025; 85610; 85730; 81001; 36415; 93005; J7030; J0696

== ENCOUNTER → 2025-04-07 | Outpatient (CLI) | payer MEDICARE ==
[~2025-04-07] MED LIST changes: -ROSU10TA72 PO; +ROSU10TA98 PO
--- NOTE | 2025-04-07 15:44 | HMCIMG ---
US VENOUS DOPPLER BILATERAL REASON: HYPERTENSION COMPARISON: None Technique: Bilateral venous doppler ultrasound was performed with spectral analysis and color flow imaging technique. FINDINGS: There is a normal appearance of the common femoral, deep femoral, the profunda femoris and popliteal veins. Proximal calf veins appear normal as well. There is normal response to compression and augmentation. There is no evidence of deep venous thrombosis. IMPRESSION: Normal bilateral lower extremity venous Doppler ultrasound.
--- NOTE | 2025-04-07 16:14 | HMCIMG ---
US ARTERIAL BILAT LOW EXT DUPL HISTORY: HYPERTENSION TECHNIQUE: Duplex Doppler evaluation of the arteries of both legs performed. FINDINGS: Grayscale images revealed intimal calcifications throughout both lower extremities. Peak systolic velocities and wave patterns were documented, as follows: RIGHT LEG Common femoral: 142 cm/s biphasic Superficial femoral prox: 73 cm/s biphasic Superficial femoral mid: 67 cm/s biphasic Superficial femoral distal: 50 cm/s Triphasic Popliteal: 59 cm/s biphasic Posterior tibial: 47 cm/s biphasic Dorsalis pedis: 48 cm/s biphasic LEFT LEG Common femoral: 198 cm/s biphasic Superficial femoral prox: 108 cm/s biphasic Superficial femoral mid: 136 cm/s biphasic Superficial femoral distal: 58 cm/s biphasic Popliteal: 58 cm/s monophasic Posterior tibial: 65 cm/s monophasic Dorsalis pedis: 13 cm/s monophasic IMPRESSION: Normal right lower extremity arterial Doppler. There is elevated velocity in the left common femoral artery suggesting of stenosis. There is monophasic waveform in the left popliteal artery and trifurcation vessels suggesting of small vessel disease.
== END | disposition home or self-care (01) ==
LOC: RAH 12:52
PROVIDERS: ATTEND Internal Medicine Cardiovascular Disease
DX: I10 Essential (primary) hypertension (principal); I70.203 Unspecified atherosclerosis of native arteries of extremities, bilateral legs; R60.0 Localized edema
CPT/HCPCS: 93925; 93970